=== PATIENT | female | born 1970 | race African-American/Black ===

== ENCOUNTER 2021-11-11 08:00 | Emergency (ER) | payer OTHER ==
[~2021-11-11] VITALS: Ht 165.1 cm; Wt 98.9 kg
[2021-11-11 08:02] VITALS: BP 153/97
--- NOTE | 2021-11-11 08:11 | NUR ---
PATIENT AMBULATED TO BED 1.
--- NOTE | 2021-11-11 08:18 | NUR ---
51 Y/O FEMALE BIB SELF C/O LEFT EYE PAIN RADIATING TO LEFT EAR & SENSITIVE TO LIGHT, DICKINSON. PAIN RATED 8/10. PT STATES SHE HAS HAD NAUSEA X TODAY AND C/O R EYE REDNESS X 3DAY. PT DENIES BLURY VISION. PT STATES SHE USED SYSTANE EYEDROPS THIS AM WHICH HAVE MADE HER EYE PAIN A "LITTLE" BETTER. PT IS ALERT AND ORIENTED X4. BED LOCKED IN LOWEST POSITION. BED RAILX1. PMH: ANEMIA MEDS: SYSTANE EYE DROPS
[2021-11-11] MEDS ORDERED: TETRACAINE HCL/PF 0.5% OPTH 4 ML BTL OP ONE (08:45)
[2021-11-11] MEDS ORDERED: FLUORESCEIN OPTH STRIP 1 MG OP ONE (08:45)
[2021-11-11] MEDS ORDERED: TOMOMETER 1 DEV DEV MC ONE (09:10)
[2021-11-11 09:34] VITALS: BP 142/78
--- NOTE | 2021-11-11 09:35 | NUR ---
Patient discharged with v/s stable. Written and verbal after care instructions given and explained. Patient verbalized understanding. Ambulatory with steady gait. All questions addressed prior to discharge. Advised to follow up with PMD.
== END 2021-11-11 09:35 | disposition home or self-care (01) ==
LOC: MED 08:00
DX: H57.12 Ocular pain, left eye (principal); Z90.710 Acquired absence of both cervix and uterus
CPT/HCPCS: 99283